=== PATIENT | male | born 1995 | race Caucasian/White ===

== ENCOUNTER 2022-03-10 11:25 | Emergency (ER) | payer SELFPAY ==
[2022-03-10 11:29] VITALS: BP 109/67; PULSE 58; RESP 18; TEMP 36.6; O2SAT 100; BMI 23.7
--- NOTE | 2022-03-10 12:35 | ED.GENADULT ---
HPI - General Adult General Time Seen by Provider: 12:35 Date Seen: 03/10/22 Chief complaint: Rib Pain Stated complaint: Right side rib pain Time Seen by Provider: 03/10/22 11:44 Source: patient Mode of arrival: ambulatory Limitations: no limitations History of Present Illness HPI narrative: Patient is a 26-year-old male who is very pleasant, has had a physical job where he was lifting a refrigerator hurt his back remotely in his low back. Over the last couple of weeks he has had some right chest wall pain, right around his nipple line laterally to his anterior axillary line, no redness, no warmth erythema no rashes. He has been generally healthy, no chronic health problems. He has not lifted anything heavy since he hurt his back with the refrigerator he still having some limitations with his low back but his main concern is his right rib cage area he has had no cough, no chest pain no fevers. He does notice it is tender when he pushes on his rib cage Related Data Previous Rx's Medication Instructions Recorded methylprednisolone 4 mg tablets in 4 mg PO DAILY #21 ea 03/10/22 a dose pack (Methylpred DP) Review of Systems Status of ROS: Reports: 6 or more systems reviewed and unremarkable except as noted in History and below Exam Narrative: Exam Narrative: Objective vital signs show an O2 sat is excellent, no cyanosis In no apparent distress Chest wall palpation shows tenderness along the anterior axillary line for several ribcage area on the right, no redness or warmth. Lungs are clear heart rhythm regular without murmur Extremities are no edema neurologic nonfocal. Good peripheral perfusion noted Const: Vital Signs, click to edit/add: Vital Signs - 24 hr 03/10/22 11:29 Temperature 97.9 F Pulse Rate [Pulse Oximeter] 58 L Respiratory Rate 18 Blood Pressure [Ri ght Upper Arm] 109/67 Pulse Oximetry 100 Oxygen Delivery Me thod Room Air Course Vital Signs Vital signs: Initial Vital Signs Temperature 97.9 F 03/10/22 11:29 Temperature Source Temporal Artery Scan 03/10/22 11:29 Pulse Rate 58 L 03/10/22 11:29 Pulse Rhythm 03/10/22 11:29 Respiratory Rate 18 03/10/22 11:29 Blood Pressure 109/67 03/10/22 11:29 Blood Pressure Mean 81 03/10/22 11:29 Blood Pressure Position Sitting 03/10/22 11:29 Pulse Oximetry 100 03/10/22 11:29 Oxygen Delivery Method 03/10/22 11:29 Vital Signs Temperature 97.9 F 03/10/22 11:29 Pulse Rate 58 L 03/10/22 11:29 Respiratory Rate 18 03/10/22 11:29 Blood Pressure 109/67 03/10/22 11:29 Pulse Oximetry 100 03/10/22 11:29 Oxygen Delivery Method 03/10/22 11:29 Temperature 97.9 F 03/10/22 11:29 Pulse Rate 58 L 03/10/22 11:29 Respiratory Rate 18 03/10/22 11:29 Blood Pressure 109/67 03/10/22 11:29 Pulse Oximetry 100 03/10/22 11:29 Oxygen Delivery Method 03/10/22 11:29 Medical Decision Making MDM Narrative Medical decision making narrative: The patient is a young male who has not really tried any medication for his discomfort, the patient will has chest wall discomfort on the right he did have an injury to his back with lifting a heavy refrigerator I suspect this is a related chest wall strain, I think he could try Advil on a regular basis I am also going to give a Medrol Dosepak as I think that might help his back and his right rib cage area, he should follow up within the next week with Primary Care if he is not improving further workup such as x-rays and imaging and lab studies. Given he has not tried any medication at this point and seems to have a palpable chest wall discomfort I think we can help him with the above. I do not suspect since he did have acute injury that he has a rib fracture. Follow up as directed above, return to the ED sooner problems or concerns. Discharge Plan Discharge Clinical Impression: Chest wall pain Patient Disposition: Home, Self-Care Condition: Stable Additional Instructions: Light activity, ice to the affected area, Medrol Dosepak, ibuprofen 800 mg 3 times a day for 5-7 days, follow-up appointment with primary care in 1 week, certainly sooner problems or concerns return to the ED Activity Level: Light activity Discharge Diet: Regular Prescriptions: New methylprednisolone [Methylpred DP] 4 mg tablets,dose pack 4 mg PO DAILY Qty: 21 0RF Follow Up/Referrals: Provider,Not a Local [Primary Care Provider] - Stand Alone Forms: [employer] Info Instructions
== END 2022-03-10 13:00 | disposition home or self-care (01) ==
PROVIDERS: Emergency Provider Family Medicine
DX: S29.011A Strain of muscle and tendon of front wall of thorax, initial encounter (principal); X50.0XXA Overexertion from strenuous movement or load, initial encounter; Y93.89 Activity, other specified; Y99.0 Civilian activity done for income or pay
CPT/HCPCS: 99283